=== PATIENT | female | born 2005 | race Caucasian/White ===

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

== ENCOUNTER 2023-03-07 16:57 | Emergency (ER) | payer OTHER ==
[~2023-03-07] VITALS: Ht 157.5 cm; Wt 78.8 kg
[2023-03-07 16:58] VITALS: BP 123/74; TEMP 98.7; O2SAT 100
[2023-03-07 19:48] LABS: URINE PREG TEST NEGATIVE (NEGATIVE)
[2023-03-07 20:12] LABS: GC DNA AMPLIFICATION NEGATIVE (NEGATIVE)
== END 2023-03-07 22:02 | disposition home or self-care (01) ==
LOC: M ED 16:57
DX: N76.0 Acute vaginitis (principal); Z88.1 Allergy status to other antibiotic agents; Z88.2 Allergy status to sulfonamides

== ENCOUNTER 2023-05-13 09:28 | Emergency (ER) | payer OTHER ==
[~2023-05-13] VITALS: Ht 167.6 cm; Wt 77.4 kg
[2023-05-13] MEDS ORDERED: CLIN-250 (09:35)
[2023-05-13] MEDS ORDERED: BENA25CA4 PO ×2 (09:35→14:31)
[2023-05-13] MEDS ORDERED: NS 1,000 ML IV ONE (09:45)
[2023-05-13] MEDS ORDERED: FAMOTIDINE 20MG/2ML VIAL IVP ONE (09:45)
[2023-05-13] MEDS ORDERED: methylPREDNISolone 125MG 2ML VIAL IV ONE (09:45)
[2023-05-13] MEDS ORDERED: diphenhydrAMINE 50MG/ML VIAL IV ONE ×2 (09:45→10:30)
[2023-05-13] MEDS ORDERED: EPINEPHrine INJ 1 MG/ML 1ML AMP IM STA (11:49)
[2023-05-13] MEDS ORDERED: NS 1,000 ML IV SCH (11:50)
[2023-05-13 12:19] LABS: BASO % 0.3 % (0.0-1.0); EOS # 0.1 10^3/uL (0.0-0.5); EOS % 0.6 % (0.0-3.0); HEMATOCRIT 38.7 % (36.0-47.0); HEMOGLOBIN 12.7 g/dl (12.0-15.5); LYMPH # 0.9 10^3/uL (1.5-5.0); LYMPH % 6.5 % (24.0-44.0); MEAN CORPUSCULAR HEMOGLOBIN 28.2 pg (27.0-33.0); MEAN CORPUSCULAR HGB CONC 32.8 g/dl (32.0-36.5); MEAN CORPUSCULAR VOLUME 85.8 fl (80.0-96.0); MONO # 0.3 10^3/uL (0.0-0.8); MONO % 2.3 % (2.0-8.0); NEUTROPHILS # 12.8 10^3/uL (1.5-8.5); NEUTROPHILS % 89.9 % (36.0-66.0); PLATELET COUNT, AUTOMATED 395 10^3/uL (150-450); RED BLOOD COUNT 4.51 10^6/uL (4.00-5.40); WHITE BLOOD COUNT 14.2 10^3/uL (4.0-10.0)
[2023-05-13 12:45] LABS: ALBUMIN 3.6 G/DL (3.2-5.2); ALKALINE PHOSPHATASE 61 U/L (46-116); ALT/SGPT 15 U/L (7.0-40); AST/SGOT 13 U/L (<34); BILIRUBIN,DIRECT < 0.1 MG/DL (<0.4); BILIRUBIN,TOTAL 0.2 MG/DL (0.3-1.2); BLOOD UREA NITROGEN 6 MG/DL (9-23); CALCIUM LEVEL 9.2 MG/DL (8.5-10.1); CARBON DIOXIDE LEVEL 24 MMOL/L (20-31); CHLORIDE LEVEL 110 MMOL/L (98-107); CREATININE FOR GFR 0.51 MG/DL (0.55-1.30); GLUCOSE, FASTING 96 MG/DL (60-100); POTASSIUM SERUM 4.4 MMOL/L (3.5-5.1); SODIUM LEVEL 142 MMOL/L (136-145); TOTAL PROTEIN 6.3 G/DL (5.7-8.2)
[2023-05-13 12:52] LABS: RSV AMPLIFICATION NEGATIVE (NEGATIVE)
[2023-05-13 13:47] LABS: HCG, SERUM QUALITATIVE NEGATIVE (NEGATIVE)
[2023-05-13] MEDS ORDERED: PRED20TA PO (14:31)
[2023-05-13] MEDS ORDERED: PEPC1TAB5 PO (14:33)
[2023-05-13 14:45] VITALS: BP 121/58; TEMP 98.5; O2SAT 96
== END 2023-05-13 14:57 | disposition home or self-care (01) ==
LOC: M ED 09:28
DX: T78.40XA Allergy, unspecified, initial encounter (principal); Z88.2 Allergy status to sulfonamides; Z88.1 Allergy status to other antibiotic agents
CPT/HCPCS: 80048; 80076; 84703; 85025; 87631; 93041; 94760; 96361; 96372; 96374; 96375; 99285; J0171; J1200; J2930; S0028

== ENCOUNTER → 2023-08-31 | Outpatient (REF) ==
[~2023-08-31] MED LIST changes: +BENA25CA4 PO; +CLIN-250; +PEPC1TAB5 PO; +PRED20TA PO
== END ==
LOC: M EMP 14:38
PROVIDERS: ATTEND Family Medicine
DX: Z11.52 Encounter for screening for COVID-19 (principal)

== ENCOUNTER → 2023-12-19 | Outpatient (REF) | payer OTHER ==
[2023-12-19 17:50] LABS: URINE PREG TEST NEGATIVE (NEGATIVE)
== END ==
LOC: M LAB REF 17:06
PROVIDERS: ATTEND Physician Assistant
DX: R82.90 Unspecified abnormal findings in urine (principal)

== ENCOUNTER → 2023-12-22 | Outpatient (REF) | LOC: M EMP 09:17 | PROVIDERS: ATTEND Family Medicine | DX: Z11.52 Encounter for screening for COVID-19 (principal) ==

== ENCOUNTER → 2023-12-25 | Outpatient (CLI) | payer OTHER | LOC: M PLAIMG 15:40 | PROVIDERS: ATTEND Physician Assistant | DX: R82.90 Unspecified abnormal findings in urine (principal) ==

== ENCOUNTER → 2023-12-27 | Outpatient (REF) | payer OTHER ==
[2023-12-28 14:08] LABS: APPEARANCE, URINE CLEAR (CLEAR); BACTERIA, URINE AUTO NEGATIVE (NEGATIVE); BILIRUBIN, URINE AUTO NEGATIVE (NEGATIVE); BLOOD, URINE BLOOD NEGATIVE (NEGATIVE); COLOR, URINE YELLOW (YELLOW); GLUCOSE, URINE (UA) AUTO NEGATIVE (NEGATIVE); KETONE, URINE AUTO NEGATIVE (NEGATIVE); LEUKOCYTE ESTERASE, URINE AUTO NEGATIVE (NEGATIVE); NITRITE, URINE AUTO NEGATIVE (NEGATIVE); PROTEIN, URINE AUTO NEGATIVE (NEGATIVE); RBC, URINE AUTO 2 /HPF (0-3); SPECIFIC GRAVITY URINE AUTO 1.013 (1.002-1.035); SQUAMOUS EPITHELIAL CELL UR AU 2 /HPF (0-6); UROBILINOGEN, URINE AUTO 0.2 mg/dL (0.0-2.0); WBC, URINE AUTO 1 /HPF (0-3)
== END ==
LOC: M LAB REF 12:55
PROVIDERS: ATTEND Pediatrics
DX: N39.0 Urinary tract infection, site not specified (principal)

== ENCOUNTER → 2023-12-28 | Outpatient (CLI) | payer OTHER ==
[2023-12-28 16:45] LABS: BASO # 0.1 10^3/uL (0.0-0.2); BASO % 0.9 % (0.0-1.0); EOS # 0.2 10^3/uL (0.0-0.5); EOS % 1.6 % (0.0-3.0); HEMATOCRIT 39.2 % (36.0-47.0); HEMOGLOBIN 12.7 g/dl (12.0-15.5); LYMPH % 19.6 % (24.0-44.0); MEAN CORPUSCULAR HEMOGLOBIN 28.4 pg (27.0-33.0); MEAN CORPUSCULAR HGB CONC 32.4 g/dl (32.0-36.5); MEAN CORPUSCULAR VOLUME 87.7 fl (80.0-96.0); MONO # 0.6 10^3/uL (0.0-0.8); MONO % 5.9 % (2.0-8.0); NEUTROPHILS # 7.5 10^3/uL (1.5-8.5); NEUTROPHILS % 71.7 % (36.0-66.0); PLATELET COUNT, AUTOMATED 438 10^3/uL (150-450); RED BLOOD COUNT 4.47 10^6/uL (4.00-5.40); WHITE BLOOD COUNT 10.4 10^3/uL (4.0-10.0)
[2023-12-28 16:56] LABS: HEMOGLOBIN A1c 4.9 % (4.0-6.0)
[2023-12-28 17:18] LABS: ALKALINE PHOSPHATASE 64 U/L (46-116); ALT/SGPT 12 U/L (7.0-40); AST/SGOT < 8 U/L (<34); BILIRUBIN,TOTAL 0.4 MG/DL (0.3-1.2); BLOOD UREA NITROGEN 6 MG/DL (9-23); CALCIUM LEVEL 9.6 MG/DL (8.5-10.1); CARBON DIOXIDE LEVEL 28 MMOL/L (20-31); CHLORIDE LEVEL 105 MMOL/L (98-107); CREATININE FOR GFR 0.69 MG/DL (0.55-1.30); GLUCOSE, FASTING 76 MG/DL (60-100); POTASSIUM SERUM 4.3 MMOL/L (3.5-5.1); SODIUM LEVEL 139 MMOL/L (136-145)
[2023-12-28 17:20] LABS: FREE T4 1.08 NG/DL (0.83-1.43); THYROID STIMULATING HORMONE 1.127 uIU/ML (0.48-4.17)
== END ==
LOC: M PLALAB 13:01
PROVIDERS: ATTEND Pediatrics
DX: R63.4 Abnormal weight loss (principal)

== ENCOUNTER → 2024-01-10 | Outpatient (REF) | LOC: M EMP 14:12 | PROVIDERS: ATTEND Family Medicine | DX: Z11.52 Encounter for screening for COVID-19 (principal) ==

== ENCOUNTER 2024-01-18 04:46 | Emergency (ER) | payer OTHER ==
[~2024-01-18] VITALS: Ht 157.5 cm; Wt 79.3 kg
[2024-01-18 05:09] VITALS: BP 120/66; TEMP 97.6; O2SAT 99
[2024-01-18] MEDS: IBUPROFEN 600MG TAB PO ONE (05:31)
[2024-01-18] MEDS ORDERED: LEVO1TAB38 PO (05:48)
[2024-01-18] MEDS: LevoFLOXacin 250 MG TABLET PO ONE (06:00)
== END 2024-01-18 06:00 | disposition home or self-care (01) ==
LOC: M ED 04:46
DX: N39.0 Urinary tract infection, site not specified (principal); Z88.2 Allergy status to sulfonamides; Z88.1 Allergy status to other antibiotic agents; Z79.1 Long term (current) use of non-steroidal anti-inflammatories (NSAID); Z79.52 Long term (current) use of systemic steroids; Z79.899 Other long term (current) drug therapy

== ENCOUNTER → 2024-02-01 | Outpatient (CLI) | payer OTHER ==
[~2024-02-01] MED LIST changes: +LEVO1TAB38 PO
[2024-02-01 10:52] LABS: HEPATITIS B SURFACE ANTIGEN NEGATIVE (NEGATIVE)
[2024-02-01 11:05] LABS: HIV 1&2 SCREEN NEGATIVE (NEGATIVE)
[2024-02-01 11:13] LABS: HEPATITIS B CORE ANTIBODY IGM NEGATIVE (NEGATIVE)
[2024-02-01 14:19] LABS: Trichomonas vaginalis (AMP) NOT DETECTED (NEGATIVE)
[2024-02-01 14:43] LABS: GC DNA AMPLIFICATION NEGATIVE (NEGATIVE)
== END ==
LOC: M PLALAB 08:56
PROVIDERS: ATTEND Nurse Practitioner Family
DX: Z11.3 Encounter for screening for infections with a predominantly sexual mode of transmission (principal)

== ENCOUNTER → 2024-04-16 | Outpatient (REF) | payer OTHER ==
[~2024-04-16] MED LIST changes: -CYCL5TAB PO; +CYCL5TAB4 PO; +GABA-1172 PO; -GABA-282 PO
== END ==
LOC: M SFHCWAGY 12:38
PROVIDERS: ATTEND Nurse Practitioner Family
DX: N73.9 Female pelvic inflammatory disease, unspecified (principal)

== ENCOUNTER → 2024-06-13 | Outpatient (REF) | payer OTHER ==
[2024-06-13 21:10] LABS: Trichomonas vaginalis (AMP) NOT DETECTED (NEGATIVE)
[2024-06-13 21:33] LABS: GC DNA AMPLIFICATION NEGATIVE (NEGATIVE)
== END ==
LOC: M SFHCWAGY 17:03
PROVIDERS: ATTEND Nurse Practitioner Family
DX: Z11.3 Encounter for screening for infections with a predominantly sexual mode of transmission (principal)

== ENCOUNTER → 2024-07-18 | Outpatient (CLI) | payer OTHER | LOC: M PLAIMG 13:57 | PROVIDERS: ATTEND Physician Assistant | DX: J20.9 Acute bronchitis, unspecified (principal) ==

== ENCOUNTER → 2024-07-26 | Outpatient (CLI) | payer OTHER ==
[2024-07-26 16:27] LABS: BASO # 0.1 10^3/uL (0.0-0.2); BASO % 0.7 % (0.0-1.0); EOS # 0.1 10^3/uL (0.0-0.5); HEMATOCRIT 38.8 % (36.0-47.0); HEMOGLOBIN 12.8 g/dl (12.0-15.5); LYMPH # 2.5 10^3/uL (1.5-5.0); LYMPH % 29.4 % (24.0-44.0); MEAN CORPUSCULAR HEMOGLOBIN 28.1 pg (27.0-33.0); MEAN CORPUSCULAR VOLUME 85.3 fl (80.0-96.0); MONO # 0.5 10^3/uL (0.0-0.8); MONO % 6.3 % (2.0-8.0); NEUTROPHILS # 5.2 10^3/uL (1.5-8.5); NEUTROPHILS % 62.4 % (36.0-66.0); PLATELET COUNT, AUTOMATED 396 10^3/uL (150-450); RED BLOOD COUNT 4.55 10^6/uL (4.00-5.40); WHITE BLOOD COUNT 8.4 10^3/uL (4.0-10.0)
[2024-07-26 16:48] LABS: ALBUMIN 3.9 G/DL (3.2-5.2); ALKALINE PHOSPHATASE 60 U/L (35-104); ALT/SGPT 17 U/L (7.0-40); AST/SGOT 14 U/L (<34); BILIRUBIN,TOTAL 0.6 MG/DL (0.3-1.2); BLOOD UREA NITROGEN 6 MG/DL (9-23); C REACTIVE PROTEIN QUANTITATIV < 0.50 MG/DL (<1.0); CALCIUM LEVEL 9.3 MG/DL (8.5-10.1); CARBON DIOXIDE LEVEL 24 MMOL/L (20-31); CHLORIDE LEVEL 108 MMOL/L (98-107); CREATININE FOR GFR 0.71 MG/DL (0.55-1.30); GLUCOSE, FASTING 96 MG/DL (60-100); IRON (FE) 105 UG/DL (50-170); PERCENT SATURATION 32.3 % (13.2-45.0); POTASSIUM SERUM 3.8 MMOL/L (3.5-5.1); SODIUM LEVEL 143 MMOL/L (136-145); TOTAL IRON BINDING CAPACITY 325 UG/DL (250-425)
[2024-07-26 16:49] LABS: FERRITIN 10.3 NG/ML (7.3-270.7); MONO REFLEX EBV VCA IgM NEGATIVE (NEGATIVE)
[2024-07-26 16:50] LABS: FREE T4 0.98 NG/DL (0.83-1.43); THYROID STIMULATING HORMONE 1.171 uIU/ML (0.48-4.17)
[2024-07-26 17:31] LABS: ERYTHROCYTE SEDIMENTATION RATE 4 mm/hr (0-20)
== END ==
LOC: M PLALAB 13:31
PROVIDERS: ATTEND Physician Assistant
DX: R53.83 Other fatigue (principal)

== ENCOUNTER → 2025-01-29 | Outpatient (CLI) | payer OTHER ==
[~2025-01-29] MED LIST changes: +LAMO-18 PO; -LAMO25TA4 PO; +NORE-23; -NORE1TAB94
[2025-01-29 11:10] LABS: PLATELET COUNT, AUTOMATED 369 10^3/uL (150-450)
[2025-01-29 11:36] LABS: TOTAL PROTEIN,RANDOM URINE 14.0 MG/DL (0.0-14.0)
[2025-01-29 11:41] LABS: ALT/SGPT 21 U/L (7.0-40); AST/SGOT 17 U/L (<34); CREATININE FOR GFR 0.58 MG/DL (0.55-1.30); GLOMERULAR FILTRATION RATE > 90.0 (>60); LDH LACTATE DEHYDROGENASE 163 U/L (120-246)
[2025-01-29 12:12] LABS: HIV 1&2 SCREEN NEGATIVE (NEGATIVE)
[2025-01-29 12:20] LABS: HEPATITIS C VIRUS ABY INDEX < 0.02 INDEX (<0.8)
[2025-01-29 12:56] LABS: Trichomonas vaginalis (AMP) NOT DETECTED (NEGATIVE)
[2025-01-29 13:20] LABS: GC DNA AMPLIFICATION NEGATIVE (NEGATIVE)
== END ==
LOC: M PLALAB 08:58
PROVIDERS: ATTEND Obstetrics & Gynecology
DX: Z34.91 Encounter for supervision of normal pregnancy, unspecified, first trimester (principal); A60.09 Herpesviral infection of other urogenital tract; Q76.0 Spina bifida occulta

== ENCOUNTER → 2025-01-29 | Outpatient (REF) | payer OTHER | LOC: M PLALAB 08:46 | PROVIDERS: ATTEND Obstetrics & Gynecology | DX: Z34.91 Encounter for supervision of normal pregnancy, unspecified, first trimester (principal); Z53.9 Procedure and treatment not carried out, unspecified reason ==

== ENCOUNTER → 2025-03-25 | Outpatient (RCR) ==
[~2025-03-25] MED LIST changes: +ASPI81CH33 PO; +PRENTAB9 PO; +VALT1TAB PO
== END ==
LOC: M EMPSKH 03-09 11:37
PROVIDERS: ATTEND Family Medicine
DX: Z20.828 Contact with and (suspected) exposure to other viral communicable diseases (principal)

== ENCOUNTER → 2025-04-01 | Outpatient (REF) | payer OTHER ==
[~2025-04-01] MED LIST changes: -ASPI81CH33 PO; -PRENTAB9 PO; -VALT1TAB PO
[2025-04-01 14:15] LABS: Trichomonas vaginalis (AMP) NOT DETECTED (NEGATIVE)
[2025-04-01 14:39] LABS: GC DNA AMPLIFICATION NEGATIVE (NEGATIVE)
== END ==
LOC: M SFHCPLAZ 12:33
PROVIDERS: ATTEND Obstetrics & Gynecology
DX: Z34.92 Encounter for supervision of normal pregnancy, unspecified, second trimester (principal); Z3A.18 18 weeks gestation of pregnancy

== ENCOUNTER → 2025-04-07 | Outpatient (CLI) | payer OTHER, MEDICAID | LOC: M WHC 09:22 | PROVIDERS: ATTEND Advanced Practice Midwife | DX: Z36.89 Encounter for other specified antenatal screening (principal); Z3A.19 19 weeks gestation of pregnancy ==

== ENCOUNTER 2025-04-15 18:57 | Emergency (ER) | payer OTHER, MEDICAID ==
[2025-04-15] MEDS ORDERED: PRENTAB9 PO (19:55)
[2025-04-15] MEDS ORDERED: ASPI81CH33 PO (19:55)
[2025-04-15] MEDS ORDERED: VALT1TAB PO (19:55)
== END 2025-04-15 19:15 | disposition admitted as inpatient to this hospital (09) ==
LOC: M ED 18:57
DX: Z53.21 Procedure and treatment not carried out due to patient leaving prior to being seen by health care provider (principal)

== ENCOUNTER 2025-04-15 19:04 | Outpatient (CLI) | payer OTHER, MEDICAID ==
[~2025-04-15] VITALS: Ht 157.5 cm; Wt 90.8 kg
[2025-04-15 19:20] VITALS: BP 94/54; O2SAT 98
[2025-04-15] MEDS ORDERED: PRENTAB9 PO (19:55)
[2025-04-15] MEDS ORDERED: ASPI81CH33 PO (19:55)
[2025-04-15] MEDS ORDERED: VALT1TAB PO (19:55)
== END 2025-04-15 21:02 | disposition home or self-care (01) ==
LOC: M LDO 19:04
PROVIDERS: ATTEND Obstetrics & Gynecology
DX: O26.892 Other specified pregnancy related conditions, second trimester (principal); O99.12 Other diseases of the blood and blood-forming organs and certain disorders involving the immune mechanism complicating childbirth; R10.31 Right lower quadrant pain; R10.A1 Flank pain, right side; Z88.1 Allergy status to other antibiotic agents; Z88.2 Allergy status to sulfonamides; D89.9 Disorder involving the immune mechanism, unspecified; Z3A.20 20 weeks gestation of pregnancy
CPT/HCPCS: 59025; G0463